=== PATIENT | female | born 1995 | race Caucasian/White ===

== ENCOUNTER 2017-01-04 20:12 | Emergency (ER) | payer OTHER ==
--- NOTE | 2017-01-04 22:32 | ED NURSING NOTES ---
Clinical Report - Nurses [facility] [address] [place] [address] 01/04/2017 20:15 Patient: BRONWYN BAUTISTA TRIAGE Triage time 21:40. Chief Complaint: LEFT UPPER and LOWER TOOTHACHE and CHIPPED TOOTH. 21:46. --21:46 Opal Owens R.N. 21:39 01/04/17. BP: 111/70 taken on the left arm, via an automated monitor, while sitting. HR: 88 (regular, normal rate and strong). RR: 16 (regular, unlabored and normal). O2 saturation: 99% on room air. Temp: 97.6 F (oral). Pain level now: 08/27. --21:46 Opal Owens R.N. Weight: 104.3 kg stated. Height/Length: 65 inches Per Patient. BMI: 38.3. --21:45 Opal Owens R.N. Medications NOVA RING. --21:41 Opal Owens R.N. Allergies Albuterol.(vomiting) --21:42 Opal Owens R.N. Hydrocodone.(hives) --21:43 Opal Owens R.N. History Arrived by private vehicle. Historian: patient. Accompanied by friend. Onset. (1 weeks ago). PAST MEDICAL HX: ( having problems for 2 years). SOCIAL HX: Current every day smoker, start date 2006. Occasional alcohol use. No drug use. FALL RISK ASSESSMENT: Fall risk assessment completed. No fall risk identified. NUTRITIONAL RISK ASSESSMENT: The nutritional risk assessment revealed no deficiencies. FUNCTIONAL ASSESSMENT: Functional assessment: no impairments noted. LEARNING NEEDS ASSESSMENT: The learning needs assessment revealed no barriers. SKIN INTEGRITY ASSESSMENT: Skin integrity risk assessment completed. No skin integrity risk identified. --21:46 Opal Owens R.N. PROBLEMS: no known problems. ADDITIONAL SURGERIES: Adenoidectomy. Tonsillectomy. --21:43 Opal Owens R.N. PHYSICAL ASSESSMENT 22:25. Ambulatory to room. GENERAL / NEURO / PSYCH: Alert. Oriented X 4. HEENT: Voice within normal limits. Mucous membranes are pink. RESPIRATORY: Respirations not labored. SKIN: Skin is warm and dry. Normal skin turgor. --22:25 Bishop Zheng R.N. NURSING PROGRESS NOTES 22:25. Head of bed elevated. Two patient identifiers checked. Call light placed in reach. Bed placed in lowest position. Brakes of bed on. Patient ready for evaluation- chart flagged. --22:25 Bishop Zheng R.N. DISPOSITION / DISCHARGE Departure time: 2235. Condition at departure: stable. No learning barriers present. Discharge instructions provided and reviewed with the patient. Reviewed medication(s) side effects, precautions, dosing and course information. Prescription(s) given to the patient. Patient verbalized understanding. Written instructions provided in Chinese. The patient was discharged home and accompanied by behavioral scientist. She left the Emergency Department ambulatory and via private vehicle. Oil Refiner driving. FALL RISK ASSESSMENT: Fall risk assessment completed. No fall risk identified. --22:40 Bishop Zheng R.N. Locked/Released at 01/05/2017 3:06 by Bishop Zheng R.N.
--- NOTE | 2017-01-04 22:32 | ED CLINICAL REPORT ---
Clinical Report - Physicians/Mid Levels [facility] [address] [place] [address] 01/04/2017 20:15 Patient: BRONWYN BAUTISTA Time Seen: 21:52 Jan 04 2017. Arrived- By private vehicle. Historian- patient. HISTORY OF PRESENT ILLNESS Chief Complaint: DENTAL PAIN. This started about 1 weeks ago and is still present and worsening. Pain described as moderate. No sore throat, mouth sores, nasal discharge or swollen jaw or face. No facial pain. She has had toothache and jaw pain. (Patient says she brokeher tooth about 3 weeks ago. Over the course of the last week she has been started and get pain inher left upper molar. She says she has been afraid to go to the dentist but no she needs to. She denies any fever, chills, nausea, Or vomiting. She said she felt like she was getting a headache earlier and came to the emergency room but it's now much better.). Similar symptoms previously: Milder. Recent medical care: Not recently seen/assessed. REVIEW OF SYSTEMS No fever, nausea, diarrhea, fainting episodes or skin rash. No vomiting. All systems otherwise negative, except as recorded above. PAST HISTORY See nurses notes. No history of heart disease or lung disease. SOCIAL HISTORY Smoker- current status unknown. Alcohol use. No drug use. ADDITIONAL NOTES The nursing notes have been reviewed. PHYSICAL EXAM Appearance: Alert. No acute distress. Head: Normal external inspection. Eyes: Pupils equal, round and reactive to light. Conjunctivae and eyelids normal. ENT: Mild dental decay (upper left second molar, lower left second molar). No gingival induration, swelling or fluctuance. Ears normal. Nose normal. Pharynx normal. Lips normal. Uvula midline. Neck: Normal inspection. Trachea midline. No adenopathy. Neck supple. CVS: Normal heart rate and rhythm. Heart sounds normal. Respiratory: No respiratory distress. Breath sounds normal. Skin: Normal skin color. No rash. Normal skin turgor. Extremities: Extremities exhibit normal ROM. Neuro: Oriented X 3. No motor deficit. No sensory deficit. PROGRESS AND PROCEDURES Course of Care: Patient was slowly progressing dental pain. I cannot completely rule out a developing abscess go ahead and put her on amoxicillin. Ibuprofen and Tylenol for pain. She understands that she needs to see dental as soon as possible and she verbalized that she'll do this next week. Disposition: Discharged home in good condition. CLINICAL IMPRESSION Moderate dental pain. Possible dental abscess. INSTRUCTIONS Rest at home tomorrow. Drink plenty of fluids. No dietary restrictions. Warnings: Further evaluation is necessary (Follow-up with a dentist is very important.). It is very important to follow up with a physician. GENERAL WARNINGS: Return or contact your physician immediately if your condition worsens or changes unexpectedly, if not improving as expected, or if other problems arise. Specifically return if vomiting or fever greater than 102 degrees F. Prescription Medications: Amoxicillin 500 mg capsules: every 6 hours for 7 days. No refills. OTC Medications: Acetaminophen (available over the counter): take according to label instructions. Motrin (available over the counter): take according to label instructions. Follow-up: Follow up with your doctor as needed. Understanding of the discharge instructions verbalized by patient. (Electronically signed by Jese Hernandez, 01/05/2017 0:38)
--- NOTE | 2017-01-04 22:32 | ED NURSING NOTES ---
Clinical Report - Nurses [facility] [address] [place] [address] 01/04/2017 20:15 Patient: BRONWYN BAUTISTA TRIAGE Triage time 21:40. Chief Complaint: LEFT UPPER and LOWER TOOTHACHE and CHIPPED TOOTH. 21:46. --21:46 Opal Owens R.N. 21:39 01/04/17. BP: 111/70 taken on the left arm, via an automated monitor, while sitting. HR: 88 (regular, normal rate and strong). RR: 16 (regular, unlabored and normal). O2 saturation: 99% on room air. Temp: 97.6 F (oral). Pain level now: 08/27. --21:46 Opal Owens R.N. Weight: 104.3 kg stated. Height/Length: 65 inches Per Patient. BMI: 38.3. --21:45 Opal Owens R.N. Medications NOVA RING. --21:41 Opal Owens R.N. Allergies Albuterol.(vomiting) --21:42 Opal Owens R.N. Hydrocodone.(hives) --21:43 Opal Owens R.N. History Arrived by private vehicle. Historian: patient. Accompanied by friend. Onset. (1 weeks ago). PAST MEDICAL HX: ( having problems for 2 years). SOCIAL HX: Current every day smoker, start date 2006. Occasional alcohol use. No drug use. FALL RISK ASSESSMENT: Fall risk assessment completed. No fall risk identified. NUTRITIONAL RISK ASSESSMENT: The nutritional risk assessment revealed no deficiencies. FUNCTIONAL ASSESSMENT: Functional assessment: no impairments noted. LEARNING NEEDS ASSESSMENT: The learning needs assessment revealed no barriers. SKIN INTEGRITY ASSESSMENT: Skin integrity risk assessment completed. No skin integrity risk identified. --21:46 Opal Owens R.N. PROBLEMS: no known problems. ADDITIONAL SURGERIES: Adenoidectomy. Tonsillectomy. --21:43 Opal Owens R.N. PHYSICAL ASSESSMENT 22:25. Ambulatory to room. GENERAL / NEURO / PSYCH: Alert. Oriented X 4. HEENT: Voice within normal limits. Mucous membranes are pink. RESPIRATORY: Respirations not labored. SKIN: Skin is warm and dry. Normal skin turgor. --22:25 Bishop Zheng R.N. NURSING PROGRESS NOTES 22:25. Head of bed elevated. Two patient identifiers checked. Call light placed in reach. Bed placed in lowest position. Brakes of bed on. Patient ready for evaluation- chart flagged. --22:25 Bishop Zheng R.N. DISPOSITION / DISCHARGE Departure time: 2235. Condition at departure: stable. No learning barriers present. Discharge instructions provided and reviewed with the patient. Reviewed medication(s) side effects, precautions, dosing and course information. Prescription(s) given to the patient. Patient verbalized understanding. Written instructions provided in Lithuanian. The patient was discharged home and accompanied by switch operator. She left the Emergency Department ambulatory and via private vehicle. Company Marker driving. FALL RISK ASSESSMENT: Fall risk assessment completed. No fall risk identified. --22:40 Bishop Zheng R.N. Locked/Released at 01/05/2017 3:06 by Bishop Zheng R.N.
--- NOTE | 2017-01-05 03:06 | ED MED RECONCILIATION SUMMARY ---
Patient: BRONWYN BAUTISTA Medication Reconciliation Report [facility] VisitID: [id number] [address] [place] [address] 21y, F Registration Date/Time: 01/04/2017 Weight: 104.3 kg Height/Length: 65 in. BMI: 38.3 ALLERGIES: Albuterol, Hydrocodone The patient's Home Medications are listed below: THE FOLLOWING MEDICATIONS NEED TO BE RECONCILED: MEHNAZ PLEITEZ The source(s) of the original Home Medication information: Not obtained. The following Medications were given to the patient in the Emergency Department: None. The following Medications were prescribed to the patient: Acetaminophen (available over the counter): take according to label instructions. -- Jese Hernandez Motrin (available over the counter): take according to label instructions. -- Jese Hernandez Amoxicillin 500 mg capsules: every 6 hours for 7 days. No refills. -- Jese Hernandez
--- NOTE | 2017-01-05 03:06 | ED MED RECONCILIATION SUMMARY ---
Patient: BRONWYN BAUTISTA Medication Reconciliation Report [facility] VisitID: [id number] [address] [place] [address] 21y, F Registration Date/Time: 01/04/2017 Weight: 104.3 kg Height/Length: 65 in. BMI: 38.3 ALLERGIES: Albuterol, Hydrocodone The patient's Home Medications are listed below: THE FOLLOWING MEDICATIONS NEED TO BE RECONCILED: MEHNAZ PLEITEZ The source(s) of the original Home Medication information: Not obtained. The following Medications were given to the patient in the Emergency Department: None. The following Medications were prescribed to the patient: Acetaminophen (available over the counter): take according to label instructions. -- Jese Hernandez Motrin (available over the counter): take according to label instructions. -- Jese Hernandez Amoxicillin 500 mg capsules: every 6 hours for 7 days. No refills. -- Jese Hernandez
--- NOTE | 2017-01-05 03:06 | ED MAR SUMMARY ---
..... Medication Administration Record [facility] [address] [place], [place] [id number] Patient: BRONWYN BAUTISTA Visit ID: [id number] 21y, F Weight: 104.3 kg Height/Length: 65 in BMI: 38.3 ALLERGIES: Hydrocodone, Albuterol
--- NOTE | 2017-01-05 03:06 | ED DISCHARGE INSTRUCTIONS ---
Patient: BRONWYN BAUTISTA General Instructions [facility] VisitID: [id number] [address] [place] [address] 21y, F Registration Date/Time: 01/04/2017 Moderate dental pain. INSTRUCTIONS Rest at home tomorrow. Drink plenty of fluids. No dietary restrictions. Warnings: Further evaluation is necessary (Follow-up with a dentist is very important.). It is very important to follow up with a physician. GENERAL WARNINGS: Return or contact your physician immediately if your condition worsens or changes unexpectedly, if not improving as expected, or if other problems arise. Specifically return if vomiting or fever greater than 102 degrees F. Prescription Medications: Amoxicillin 500 mg capsules: every 6 hours for 7 days. No refills. OTC Medications: Acetaminophen (available over the counter): take according to label instructions. Motrin (available over the counter): take according to label instructions. Follow-up: Follow up with your doctor as needed. Understanding of the discharge instructions verbalized by patient. ADDITIONAL INFORMATION Dental Pain A crack or cavity in the tooth, which exposes the sensitive inner area of the tooth can cause tooth pain. An infection in the gum or the root of the tooth can cause pain and swelling. The pain is often made worse by drinking hot or cold fluids, or biting on hard foods. Pain may spread from the tooth to the ear or jaw on the same side. Home Care: Avoid hot and cold foods and liquids since your tooth may be sensitive to temperature changes. If your tooth is chipped or cracked, or if there is a large open cavity, apply OIL OF CLOVES (available dyln-ant-zeopopk in drug stores) directly to the tooth to reduce pain. Some pharmacies carry an irhr-rhe-uktgbch "toothache kit." This contains a paste, which can be applied over the exposed tooth to decrease sensitivity. A cold pack on your jaw over the sore area may help reduce pain. You may use acetaminophen (Tylenol) or ibuprofen (Motrin, Advil) to control pain, unless another medicine was prescribed. [ NOTE: If you have chronic liver or kidney disease or ever had a stomach ulcer or GI bleeding, talk with your doctor before using these medicines.] If you have signs of an infection, an antibiotic will be given. Take it as directed. Follow-Up as directed with a dentist. Your pain may go away with the treatment given. However, only a dentist can fully evaluate and treat the cause and prevent the pain from coming back again. TOOTHACHE IS A SIGN OF DISEASE IN YOUR TOOTH AND SHOULD BE EXAMINED AND TREATED BY A DENTIST. Get Prompt Medical Attention if any of the following occur: Your face becomes swollen or red Pain worsens or spreads to the neck Fever over 100.4 F (38.0 C) Unusual drowsiness; headache or stiff neck; weakness or fainting Pus drains from the tooth Difficulty swallowing or breathing Dental Cavity A dental cavity is a pit or crater in the enamel surface of the tooth. This exposes the sensitive inner layer of the tooth and causes pain. If untreated, the cavity will get bigger and may cause an infection or abscess in the root of the tooth. An infection in the tooth is a much more serious problem and may require a root canal or removal of the entire tooth. The tooth pain may be made worse by drinking hot or cold fluids. It may spread from the tooth to the ear or jaw on the same side. Home Care: Avoid hot and cold foods, and liquids since your tooth may be sensitive to temperature changes. If your tooth is chipped or cracked, or if there is a large open cavity, apply OIL OF CLOVES (available bnwe-wku-bwiqlbs in drug stores) directly to the tooth to reduce pain. Some pharmacies carry an aqre-uwb-jmrvjht "toothache kit." This contains oil of cloves and a paste, which can be applied over the exposed tooth to decrease sensitivity. An ice pack on your jaw over the sore area may help to reduce pain. You may use acetaminophen (Tylenol) or ibuprofen (Motrin, Advil) to control pain, unless another pain medicine was prescribed. [ NOTE: If you have liver disease or ever had a stomach ulcer, talk with your doctor before using these medicines.] If you have signs of an infection, an antibiotic will be given. Take it as directed. Follow-Up with your dentist as directed. Although your pain may go away with the treatment given, only a dentist can fully evaluate and treat this problem to prevent further tooth damage. Get Prompt Medical Attention if any of the following occur: Redness or swelling of the face Pain worsens or spreads to the neck Fever over 100.5 F (38C) Unusual drowsiness; headache or stiff neck; weakness or fainting Pus drains from the tooth or gum Difficulty swallowing or breathing Dental Abscess A dental abscess is an infection of the tooth socket. It often starts with a crack or cavity in the tooth. A pocket of pus forms between the tooth and the bone. The infection causes pain and swelling of the gum, cheek or jaw. The pain is often made worse by drinking hot or cold fluids, or biting on hard foods. Pain may be felt in the facial sinus or in the ear. A severe infection can interfere with swallowing and breathing. In the emergency department or clinic, you will be started on an antibiotic. However, final treatment requires drainage of the pus. This can be done by removing the tooth or performing a root canal. A root canal is done by an oral surgeon and involves drilling an opening in the tooth to drain the pus. After the infection has healed, a crown is placed over the tooth. Home care The following guidelines will help you care for your abscess at home: Avoid hot and cold foods and liquids since your tooth may be sensitive to temperature changes. If your tooth is chipped or cracked, or if there is a large open cavity, applyoil of cloves(available pfjp-bip-oujlede in drug stores) directly to the tooth to reduce pain. Some pharmacies carry an wfgg-ofs-rnpwukb "toothache kit". This contains oil of cloves and a paste, which can be applied over the exposed tooth to decrease sensitivity. Apply an ice pack (ice cubes in a plastic bag, wrapped in a towel) over the injured area for 20 minutes every 12 hours the first day for pain relief. Continue this 34 times a day until the pain and swelling goes away. You may use acetaminophen or ibuprofen to control pain, unless another medicine was prescribed. If you have chronic liver or kidney disease or ever had a stomach ulcer or GI bleeding, talk with your doctor before using these medicines. An antibiotic will be prescribed. Take it as directed until completed, even if you are feeling better sooner. Follow-up care Follow up as directed with a dentist or oral surgeon. Even though your pain may improve with the treatment given today, only a dentist or oral surgeon can provide full treatment for this problem. When to seek medical care Get prompt medical attention or contact your doctor if any of the following occur: Your face or eyelid becomes swollen or red Pain worsens or spreads to the neck Fever over 100.4F (38.0C) Unusual drowsiness; headache or stiff neck; weakness, or fainting Pus drains from the gum or tooth Difficulty talking, swallowing or breathing Unable to open your mouth wide Amoxicillin Trihydrate Oral tablet What is this medicine? AMOXICILLIN (a mox i LOIS in) is a penicillin antibiotic. It is used to treat certain kinds of bacterial infections. It will not work for colds, flu, or other viral infections. How should I use this medicine? Take this medicine by mouth with a glass of water. Follow the directions on your prescription label. You may take this medicine with food or on an empty stomach. Take your medicine at regular intervals. Do not take your medicine more often than directed. Take all of your medicine as directed even if you think your are better. Do not skip doses or stop your medicine early. Talk to your metallurgist helper regarding the use of this medicine in children. While this drug may be prescribed for selected conditions, precautions do apply. What side effects may I notice from receiving this medicine? Side effects that you should report to your doctor or health career specialist as soon as possible: allergic reactions like skin rash, itching or hives, swelling of the face, lips, or tongue breathing problems dark urine redness, blistering, peeling or loosening of the skin, including inside the mouth seizures severe or watery diarrhea trouble passing urine or change in the amount of urine unusual bleeding or bruising unusually weak or tired yellowing of the eyes or skin Side effects that usually do not require medical attention (report to your doctor or health career specialist if they continue or are bothersome): dizziness headache stomach upset trouble sleeping What may interact with this medicine? amiloride control pills chloramphenicol macrolides probenecid sulfonamides tetracyclines What if I miss a dose? If you miss a dose, take it as soon as you can. If it is almost time for your next dose, take only that dose. Do not take double or extra doses. Where should I keep my medicine? Keep out of the reach of children. Store between 68 and 77 degrees F (20 and 25 degrees C). Keep bottle closed tightly. Throw away any unused medicine after the expiration date. What should I tell my health care provider before I take this medicine? They need to know if you have any of these conditions: asthma kidney disease an unusual or allergic reaction to amoxicillin, other penicillins, cephalosporin antibiotics, other medicines, foods, dyes, or preservatives or trying to get breast-feeding What should I watch for while using this medicine? Tell your doctor or health career specialist if your symptoms do not improve in 2 or 3 days. Take all of the doses of your medicine as directed. Do not skip doses or stop your medicine early. If you are diabetic, you may get a false positive result for sugar in your urine with certain brands of urine tests. Check with your doctor. Do not treat diarrhea with pijs-mre-pcqfcod products. Contact your doctor if you have diarrhea that lasts more than 2 days or if the diarrhea is severe and watery. You have been given the following additional information: Dental Pain Dental Cavity Tooth Abscess Amoxicillin Trihydrate Oral tablet Rest at home tomorrow. (Electronically signed by Jese Hernandez, 01/05/2017 0:38)
--- NOTE | 2017-01-05 03:06 | ED DISCHARGE INSTRUCTIONS ---
Patient: BRONWYN BAUTISTA General Instructions [facility] VisitID: [id number] [address] [place] [address] 21y, F Registration Date/Time: 01/04/2017 Moderate dental pain. INSTRUCTIONS Rest at home tomorrow. Drink plenty of fluids. No dietary restrictions. Warnings: Further evaluation is necessary (Follow-up with a dentist is very important.). It is very important to follow up with a physician. GENERAL WARNINGS: Return or contact your physician immediately if your condition worsens or changes unexpectedly, if not improving as expected, or if other problems arise. Specifically return if vomiting or fever greater than 102 degrees F. Prescription Medications: Amoxicillin 500 mg capsules: every 6 hours for 7 days. No refills. OTC Medications: Acetaminophen (available over the counter): take according to label instructions. Motrin (available over the counter): take according to label instructions. Follow-up: Follow up with your doctor as needed. Understanding of the discharge instructions verbalized by patient. ADDITIONAL INFORMATION Dental Pain A crack or cavity in the tooth, which exposes the sensitive inner area of the tooth can cause tooth pain. An infection in the gum or the root of the tooth can cause pain and swelling. The pain is often made worse by drinking hot or cold fluids, or biting on hard foods. Pain may spread from the tooth to the ear or jaw on the same side. Home Care: Avoid hot and cold foods and liquids since your tooth may be sensitive to temperature changes. If your tooth is chipped or cracked, or if there is a large open cavity, apply OIL OF CLOVES (available pzlu-dso-xbozuve in drug stores) directly to the tooth to reduce pain. Some pharmacies carry an rwbe-phs-ucmfwfr "toothache kit." This contains a paste, which can be applied over the exposed tooth to decrease sensitivity. A cold pack on your jaw over the sore area may help reduce pain. You may use acetaminophen (Tylenol) or ibuprofen (Motrin, Advil) to control pain, unless another medicine was prescribed. [ NOTE: If you have chronic liver or kidney disease or ever had a stomach ulcer or GI bleeding, talk with your doctor before using these medicines.] If you have signs of an infection, an antibiotic will be given. Take it as directed. Follow-Up as directed with a dentist. Your pain may go away with the treatment given. However, only a dentist can fully evaluate and treat the cause and prevent the pain from coming back again. TOOTHACHE IS A SIGN OF DISEASE IN YOUR TOOTH AND SHOULD BE EXAMINED AND TREATED BY A DENTIST. Get Prompt Medical Attention if any of the following occur: Your face becomes swollen or red Pain worsens or spreads to the neck Fever over 100.4 F (38.0 C) Unusual drowsiness; headache or stiff neck; weakness or fainting Pus drains from the tooth Difficulty swallowing or breathing Dental Cavity A dental cavity is a pit or crater in the enamel surface of the tooth. This exposes the sensitive inner layer of the tooth and causes pain. If untreated, the cavity will get bigger and may cause an infection or abscess in the root of the tooth. An infection in the tooth is a much more serious problem and may require a root canal or removal of the entire tooth. The tooth pain may be made worse by drinking hot or cold fluids. It may spread from the tooth to the ear or jaw on the same side. Home Care: Avoid hot and cold foods, and liquids since your tooth may be sensitive to temperature changes. If your tooth is chipped or cracked, or if there is a large open cavity, apply OIL OF CLOVES (available cfkw-fea-otkueoc in drug stores) directly to the tooth to reduce pain. Some pharmacies carry an lvov-brc-xfujybc "toothache kit." This contains oil of cloves and a paste, which can be applied over the exposed tooth to decrease sensitivity. An ice pack on your jaw over the sore area may help to reduce pain. You may use acetaminophen (Tylenol) or ibuprofen (Motrin, Advil) to control pain, unless another pain medicine was prescribed. [ NOTE: If you have liver disease or ever had a stomach ulcer, talk with your doctor before using these medicines.] If you have signs of an infection, an antibiotic will be given. Take it as directed. Follow-Up with your dentist as directed. Although your pain may go away with the treatment given, only a dentist can fully evaluate and treat this problem to prevent further tooth damage. Get Prompt Medical Attention if any of the following occur: Redness or swelling of the face Pain worsens or spreads to the neck Fever over 100.5 F (38C) Unusual drowsiness; headache or stiff neck; weakness or fainting Pus drains from the tooth or gum Difficulty swallowing or breathing Dental Abscess A dental abscess is an infection of the tooth socket. It often starts with a crack or cavity in the tooth. A pocket of pus forms between the tooth and the bone. The infection causes pain and swelling of the gum, cheek or jaw. The pain is often made worse by drinking hot or cold fluids, or biting on hard foods. Pain may be felt in the facial sinus or in the ear. A severe infection can interfere with swallowing and breathing. In the emergency department or clinic, you will be started on an antibiotic. However, final treatment requires drainage of the pus. This can be done by removing the tooth or performing a root canal. A root canal is done by an oral surgeon and involves drilling an opening in the tooth to drain the pus. After the infection has healed, a crown is placed over the tooth. Home care The following guidelines will help you care for your abscess at home: Avoid hot and cold foods and liquids since your tooth may be sensitive to temperature changes. If your tooth is chipped or cracked, or if there is a large open cavity, applyoil of cloves(available qbjq-wjz-pujfeas in drug stores) directly to the tooth to reduce pain. Some pharmacies carry an fgxv-rmk-cjxhbie "toothache kit". This contains oil of cloves and a paste, which can be applied over the exposed tooth to decrease sensitivity. Apply an ice pack (ice cubes in a plastic bag, wrapped in a towel) over the injured area for 20 minutes every 12 hours the first day for pain relief. Continue this 34 times a day until the pain and swelling goes away. You may use acetaminophen or ibuprofen to control pain, unless another medicine was prescribed. If you have chronic liver or kidney disease or ever had a stomach ulcer or GI bleeding, talk with your doctor before using these medicines. An antibiotic will be prescribed. Take it as directed until completed, even if you are feeling better sooner. Follow-up care Follow up as directed with a dentist or oral surgeon. Even though your pain may improve with the treatment given today, only a dentist or oral surgeon can provide full treatment for this problem. When to seek medical care Get prompt medical attention or contact your doctor if any of the following occur: Your face or eyelid becomes swollen or red Pain worsens or spreads to the neck Fever over 100.4F (38.0C) Unusual drowsiness; headache or stiff neck; weakness, or fainting Pus drains from the gum or tooth Difficulty talking, swallowing or breathing Unable to open your mouth wide Amoxicillin Trihydrate Oral tablet What is this medicine? AMOXICILLIN (a mox i LOIS in) is a penicillin antibiotic. It is used to treat certain kinds of bacterial infections. It will not work for colds, flu, or other viral infections. How should I use this medicine? Take this medicine by mouth with a glass of water. Follow the directions on your prescription label. You may take this medicine with food or on an empty stomach. Take your medicine at regular intervals. Do not take your medicine more often than directed. Take all of your medicine as directed even if you think your are better. Do not skip doses or stop your medicine early. Talk to your public health staff nurse regarding the use of this medicine in children. While this drug may be prescribed for selected conditions, precautions do apply. What side effects may I notice from receiving this medicine? Side effects that you should report to your doctor or health physician loc[facility] urgent care as soon as possible: allergic reactions like skin rash, itching or hives, swelling of the face, lips, or tongue breathing problems dark urine redness, blistering, peeling or loosening of the skin, including inside the mouth seizures severe or watery diarrhea trouble passing urine or change in the amount of urine unusual bleeding or bruising unusually weak or tired yellowing of the eyes or skin Side effects that usually do not require medical attention (report to your doctor or health physician loc[facility] urgent care if they continue or are bothersome): dizziness headache stomach upset trouble sleeping What may interact with this medicine? amiloride control pills chloramphenicol macrolides probenecid sulfonamides tetracyclines What if I miss a dose? If you miss a dose, take it as soon as you can. If it is almost time for your next dose, take only that dose. Do not take double or extra doses. Where should I keep my medicine? Keep out of the reach of children. Store between 68 and 77 degrees F (20 and 25 degrees C). Keep bottle closed tightly. Throw away any unused medicine after the expiration date. What should I tell my health care provider before I take this medicine? They need to know if you have any of these conditions: asthma kidney disease an unusual or allergic reaction to amoxicillin, other penicillins, cephalosporin antibiotics, other medicines, foods, dyes, or preservatives or trying to get breast-feeding What should I watch for while using this medicine? Tell your doctor or health physician loc[facility] urgent care if your symptoms do not improve in 2 or 3 days. Take all of the doses of your medicine as directed. Do not skip doses or stop your medicine early. If you are diabetic, you may get a false positive result for sugar in your urine with certain brands of urine tests. Check with your doctor. Do not treat diarrhea with nksj-npw-tobncnb products. Contact your doctor if you have diarrhea that lasts more than 2 days or if the diarrhea is severe and watery. You have been given the following additional information: Dental Pain Dental Cavity Tooth Abscess Amoxicillin Trihydrate Oral tablet Rest at home tomorrow. (Electronically signed by Jese Hernandez, 01/05/2017 0:38)
--- NOTE | 2017-01-05 03:06 | ED MAR SUMMARY ---
..... Medication Administration Record [facility] [address] [place], [place] [id number] Patient: BRONWYN BAUTISTA Visit ID: [id number] 21y, F Weight: 104.3 kg Height/Length: 65 in BMI: 38.3 ALLERGIES: Hydrocodone, Albuterol
== END 2017-01-04 22:36 | disposition home or self-care (01) ==
LOC: ED SRH 20:12
DX: K08.89 Other specified disorders of teeth and supporting structures (principal)